=== PATIENT | male | born 1970 | race Two or more races ===

== ENCOUNTER 2017-05-22 11:09 | Outpatient (CLI) | payer MEDICAID ==
[~2017-05-22] VITALS: Ht 177.8 cm; Wt 110.0 kg
--- NOTE | ~2017-05-22 | HEMODYNAMI ---
PATIENT:VANESSA LARSON MEDICAL RECORD: [id number] : 74 LOCATION:D.CAT ADMISSION DATE: 05/22/17 Generatedon:05/22/201714:24 Patient name: VANESSA LARSON Patient #: [id number] SSN: : 1970 Date of study: 05/22/2017 Page: Of Hemodynamic Procedure Report Patient Data Patient Demographics Procedure consent was obtained First Name: VANESSA Gender: Male Last Name: MARSHA : 1970 Patient #: [id number] Age: 46 year(s) Race: Other Additional ID: [id number] Contact details [address]: [address] [place] [address] TRAIL State: [place] City: [place] Zip code: [address] Past Medical History Allergies Allergen Reaction Date Comments Reported Other allergy 05/22/2017 [facility] Admission Admission Data Admission Date: 05/22/2017 Admission Time: 11:09 Lab Results Lab Result Date: 05/22/2017 Lab Result Time: 0:00 Biochemistry Name Units Result Min Max BUN mg/dl 12 --(-*--)-- 7 18 Creatinine mg/dl 0.7 --(*---)-- 0.6 1.3 CBC Name Units Result Min Max Hemoglobin g/dl 14.8 --(-*--)-- 13.5 17.5 Procedure Procedure Types Cath Procedure Diagnostic Procedure C [facility] w/Coronaries Miscellaneous Procedures Moderate Sedation up to 45 minutes Procedure Description Procedure Date Procedure Date: 05/22/2017 Procedure Start Time: 13:51 Procedure End Time: 14:20 Procedure Staff Name Function Vicente Fong MD Performing Physician Marisa Otero RT Monitor May Beavers RT Scrub Lorelei Goodson RN Nurse Nancy Platt RN Nurse Procedure Data Cath Procedure Fluoroscopy Diagnostic fluoroscopy Total fluoroscopy Time: 7 time: 7 min min Diagnostic fluoroscopy Total fluoroscopy dose: dose: 1378 mGy 1378 mGy Contrast Material Contrast Material Type Amount (ml) Isovue 300 68 Entry Location Entry Primary Successful Side Size Upsize Upsize Entry Closure Bautista ccessful Closure Location (Fr) 1 (Fr) 2 (Fr) Remarks Device Remarks Radial Right 6 Fr Mechanical artery Short Compression Femoral Right 5 Fr Exoseal artery Estimated blood loss: 5 ml Diagnostic catheters Device Type Used For End Catheter Placement DIAGNOSTIC [place] 110cm 5 Multi-vessel Fr catheter ([id number]) Angiography DIAGNOSTIC [place] 110cm Multi-vessel 5Fr catheter (261952) Angiography Procedure Complications No complications Procedure Medications Medication Administration Route Dosage 0.9% NaCl I.V. 100 ml/hr Oxygen NC 2 l/min Lidocaine 2% added to field 20 Heparin Flush Bag added to field 2 bags (1000units/500ml NS) Fentanyl I.V. 100 mcg Versed I.V. 2 mg Versed I.V. 2 mg Fentanyl I.V. 100 mcg Radial Cocktail added to field 1 syringe (Verapomil 2mg/Nitro 400mcg/Heparin 1500units) Fentanyl I.V. 100 mcg Versed I.V. 2 mg Versed I.V. 2 mg Fentanyl I.V. 100 mcg Versed I.V. 2 mg Fentanyl I.V. 100 mcg Hemodynamics Rest HGB: 14.8 (g/dl) Heart Rate: 79 (bpm) Pressure Samples Time Site Value (mmHg) Purpose Heart Use Rate(bpm) 13:57 LV 137/-5,18 Snapshot 80 Gradients Valve Time Site Site Mean SEP/DFP Peak To Heart Use 1 2 (mmHg) (sec/min) Peak Rate (mmHg) (bpm) Aortic 13:58 LV AO 86 Snapshots Pre Cath Intra NCS Post Cath Vital Signs Time Heart Resp SPO2 etCO2 NIBP (mmHg) Rhythm Pain Sedation Rate (ipm) (%) (mmHg) Status Level (bpm) 13:41:23 81 23 97 25.6 135/87(109) NSR 0 (11) 10(A) , No pain 13:45:35 81 18 98 35.4 124/75(95) NSR 0 (11) 10(A) , No pain 13:49:42 78 16 98 33.9 122/79(104) NSR 0 (11) 10(A) , No pain 13:53:50 78 15 94 40.7 122/76(93) NSR 0 (11) 10(A) , No pain 13:57:54 85 15 96 40.7 121/85(90) NSR 0 (11) 10(A) , No pain 14:02:04 86 17 98 46.7 121/76(94) NSR 0 (11) 10(A) , No pain 14:06:57 80 16 94 42.2 129/78(101) NSR 0 (11) 10(A) , No pain 14:11:07 82 16 94 42.9 123/79(95) NSR 0 (11) 10(A) , No pain 14:15:17 84 19 94 42.9 119/74(93) NSR 0 (11) 10(A) , No pain 14:19:24 79 16 100 32.4 121/82(105) NSR 0 (11) 10(A) , No pain Medications Time Medication Route Dose Verified Delivered Reason Notes Effectiveness by by 13:10:21 0.9% NaCl I.V. 100ml/hr Vicente Nancy used for Ajit Platt RN procedure 13:10:32 Oxygen NC 2 l/min Vicente Nancy Per Ajit Platt RN physician 13:10:40 Lidocaine 2% added 20ml Viecnte Vicente for local to vial Ajit Fong MD anesthetic field 13:10:45 Heparin Flush added 2 bags Vicente Vicente used for Bag to Ajit Fong MD procedure (1000units/500ml field NS) 13:46:08 Fentanyl I.V. 100 mcg Vicente Nancy for sedation Ajit Platt RN 13:46:18 Versed I.V. 2 mg Vicente Nancy for sedation Ajit Platt RN 13:50:20 Versed I.V. 2 mg Vicente Nancy for sedation Ajit Platt RN 13:50:26 Fentanyl I.V. 100 mcg Vicente Nancy for sedation Ajit Platt RN 13:52:07 Radial Cocktail added 1 Vicente Vicente for (Verapomil to syringe Ajit Fong MD vasodilation 2mg/Nitro field 400mcg/Heparin 1500units) 13:55:33 Fentanyl I.V. 100 mcg Vicente Nancy for sedation Ajit Platt RN 13:55:41 Versed I.V. 2 mg Vicente Nancy for sedation Ajit Platt RN 13:58:52 Versed I.V. 2 mg Vicente Nancy for sedation Ajit Platt RN 13:59:03 Fentanyl I.V. 100 mcg Vicente Nancy for sedation Ajit Platt RN 14:01:42 Versed I.V. 2 mg Vicente Nancy for sedation Ajit Platt RN 14:01:59 Fentanyl I.V. 100 mcg Vicente Nancy for sedation Ajit Platt RN Procedure Log Time Note 13:08:06 Diagnostic Cath Status : Elective 13:08:43 May Beavers RT(R) sent for patient. Start room use. 13:08:44 Time tracking: Regular hours 13:08:49 Plan of Care:Hemodynamics will remain stable., Cardiac rhythm will remain stable., Comfort level will be maintained., Respiratory function will remain adequate., Patient/ family verbilizes understanding of procedure., Procedure tolerated without complication., Recovers from procedure without complications.. 13:10:21 0.9% NaCl 100ml/hr I.V. was administered by Nancy Platt RN; used for procedure; 13:10:32 Oxygen 2 l/min NC was administered by Nancy Platt RN; Per physician; 13:10:40 Lidocaine 2% 20ml vial added to field was administered by Vicente Fong MD; for local anesthetic; 13:10:45 Heparin Flush Bag (1000units/500ml NS) 2 bags added to field was administered by Vicente Fong MD; used for procedure; 13:29:16 Patient received from Pre/Post Procedure Room to [facility] 2 Alert and oriented. Tansferred to table in Supine position. 13:29:22 Warm blankets applied, and solo hugger turned on for patient comfort. 13:29:22 Correct patient and procedure confirmed by team. 13:29:24 Signed procedure consent form obtained from patient. 13:29:26 ECG and BP/O2 sat monitors applied to patient. 13:41:02 Vital chart was started 13:41:03 Baseline sample Acquired. 13:41:08 Rhythm: sinus rhythm 13:41:09 Full Disclosure recording started 13:41:21 H&P Date Dictated: 04/24/2017 Within 30 days and on chart., H&P Addendum completed by physician on day of procedure. (MUST COMPLETE FOR ALL OUTPATIENTS). 13:41:23 Pre-procedure instructions explained to patient. 13:41:24 Pre-op teaching completed and patient verbalized understanding. 13:41:27 Family in waiting room. 13:41:30 Patient NPO since Midnight. 13:42:23 Patient allergic to Other allergyhaldol 13:42:40 Is the patient allergic to Iodine/contrast media? No. 13:42:41 Was the patient premedicated? No 13:43:06 Is patient on blood thinner?No 13:43:07 Patient diabetic? No. 13:43:10 Previous problem with sedation/anesthesia? No ? 13:43:12 Snore? Yes 13:43:13 Sleep apnea? No 13:43:14 Deviated septum? No 13:43:15 Opens mouth fully? Yes 13:43:17 Sticks out tongue? Yes 13:43:19 Airway obstruction? No ? 13:43:21 Dentures? No ? 13:43:26 Pre procedure: right dorsailis pedis pulse 2+ Normal; easily identifiable; not easily obliterated 13:43:30 Pre procedure: left dorsailis pedis pulse 2+ Normal; easily identifiable; not easily obliterated 13:43:33 Patient pain scale 0/10 ?. 13:43:40 IV patent on arrival in left forearm with 0.9% NaCl at [facility]. 13:43:59 Lab results completed and on chart. 13:44:10 Right Radial & Right Groin area was prepped with chlora-prep and draped in sterile fashion 13:44:11 Alarms reviewed by R. N. 13:44:12 Sharps counted by scrub and verified by R.N. 13:44:13 Physician arrived 13:44:14 --------ALL STOP TIME OUT------ 13:44:14 Final Timeout: patient, procedure, and site verified with staff and physician. All members of the team are in agreement. 13:44:16 Right Radial & Right Groin site verified by team. 13:44:19 Physical assessment completed. ASA score P 2 - A patient with mild systemic disease as per Vicente Fong MD. 13:44:24 Sedation plan: IV Moderate Sedation Medication:Versed, Fentanyl 13:44:30 Use device set Radial Dx 13:44:31 ACIST Syringe (35495) opened to sterile field. 13:44:31 Medline Cath Pack ([id number]) opened to sterile field. 13:44:32 Bag Decanter (2001S) opened to sterile field. 13:44:32 SHEATH 6FR Slender ([id number]) opened to sterile field. 13:44:33 DIAGNOSTIC WIRE .035 260cm J wire (028015) opened to sterile field. 13:44:33 ACIST Hand Control (18249) opened to sterile field. 13:44:34 ACIST Manifold (79500) opened to sterile field. 13:44:34 Tegaderm 4 x 4 (1626W) opened to sterile field. 13:44:38 MBrace Wrist Support ([id number]) opened to sterile field. 13:46:08 Fentanyl 100 mcg I.V. was administered by Nancy Platt RN; for sedation; 13:46:18 Versed 2 mg I.V. was administered by Nancy Platt RN; for sedation; 13:49:16 Lab Result : Hemoglobin 14.8 g/dl 13:49:16 Lab Result : Creatinine 0.7 mg/dl 13:49:16 Lab Result : BUN 12 mg/dl 13:49:42 Zero performed for pressure channel P1 13:50:05 Zero performed for pressure channel P1 13:50:20 Versed 2 mg I.V. was administered by Nancy Platt RN; for sedation; 13:50:26 Fentanyl 100 mcg I.V. was administered by Nancy Platt RN; for sedation; 13:51:40 Procedure started. 13:51:50 Local anesthetic to right radial artery with Lidocaine 2% by Vicente Fong MD.INITIAL ACCESS ONLY 13:52:07 Radial Cocktail (Verapomil 2mg/Nitro 400mcg/Heparin 1500units) 1 syringe added to field was administered by Vicente Fong MD; for vasodilation; 13:53:40 A 6 Fr Short sheath was inserted into the Right Radial artery 13:55:33 Fentanyl 100 mcg I.V. was administered by Nancy Platt RN; for sedation; 13:55:41 Versed 2 mg I.V. was administered by Nancy Platt RN; for sedation; 13:56:47 A DIAGNOSTIC [place] 110cm 5 Fr catheter (155093) was advanced over the wire and used for Multi-vessel Angiography. 13:57:30 LV hemodynamics recorded. 13:57:31 LV gram done using MAYNARD 13:57:48 Injector settings: Ml/sec: 15, Volume: 15, 13:58:03 EF : 55 % 13:58:52 Versed 2 mg I.V. was administered by Nancy Platt RN; for sedation; 13:59:03 Fentanyl 100 mcg I.V. was administered by Nancy Platt RN; for sedation; 13:59:48 RCA angiography performed. 13:59:55 Injector settings: Ml/sec: 5, Volume: 15, 14:01:25 Catheter removed. 14:01:38 A DIAGNOSTIC [place] 110cm 5Fr catheter (688443) was advanced over the wire and used for Multi-vessel Angiography. 14:01:42 Versed 2 mg I.V. was administered by Nancy Platt RN; for sedation; 14:01:59 Fentanyl 100 mcg I.V. was administered by Nancy Platt RN; for sedation; 14:04:35 Catheter removed. 14:04:42 Local anesthetic to right femoral artery with Lidocaine 2% by Vicente Fong MD.ADDITIONAL ACCESS 14:04:51 SHEATH 5FR [place] (CLP984) opened to sterile field. 14:07:04 A 5 Fr sheath was inserted into the Right Femoral artery 14:08:03 DIAGNOSTIC Multipack 5Fr catheter set (CM9942) opened to sterile field. 14:08:21 5 Fr jl 4 guide catheter was inserted over the wire 14:17:21 LCA angiography performed. 14:17:24 Injector settings: Ml/sec: 3, Volume: 6, 14:17:25 Catheter removed. 14:17:27 TR BAND Standard (UCK01VWN) opened to sterile field. 14:17:34 EXOSEAL 5Fr (EX500) opened to sterile field. 14:18:17 Sheath removed intact; hemostasis achieved with Mechanical Compression to the Right Radial artery. 14:18:24 Sheath removed intact; hemostasis achieved with Exoseal to the Right Femoral artery. 14:18:25 Procedure ended.(Physican Out) 14:18:49 Fluoroscopy time 07.00 minutes. 14:18:53 Flurop Dose total: 1378 14:18:53 Fluoroscopy dose: 1378 mGy 14:18:58 Contrast amount:Isovue 300 68ml. 14:19:00 Sharps counted by scrub and verified by R.N. 14:19:02 Insertion/operative site no bleeding no hematoma. 14:19:04 TR band inflated with 10cc of air. 14:19:42 Post-op/insertion site Right Femoral artery dressed using a 4 x 4 and Tegaderm. 14:19:46 Post right radial artery:stable 14:19:52 Post Procedure Pulses reassessed and unchanged 14:19:54 Post procedure rhythm: unchanged. 14:19:57 Estimated blood loss: 5 ml 14:19:59 Post procedure instruction explained to patient.Patient verbalizes understanding. 14:19:59 Patient needs reinforcement of post procedure teaching. 14:20:12 Procedure type changed to Cath procedure, Diagnostic procedure, LHC, LHC w/Coronaries, Miscellaneous Procedures, Moderate Sedation up to 45 minutes 14:20:13 Procedure and supply charges have been captured, reviewed, submitted and are correct. 14:20:17 Procedure Complication : No complications 14:20:20 Vital chart was stopped 14:20:20 See physician's report for complete and final results. 14:20:33 Report given to Pre/Post Procedure Room. 14:20:39 Patient transfered to Pre/Post Procedure Room with Stretcher. 14:20:41 Procedure ended. 14:20:41 Full Disclosure recording stopped 14:20:49 End room use (Document Last) Device Usage Item Name Manufacture Quantity Catalog Hospital Part Current Minima l Lot# / Number Charge Number Stock Stock Serial# Code ACIST Acist 1 87596 000271 313284 243077 20 Syringe ContentDJ (94628) Systems Inc Medline Cath Cardinal 1 [id number] 191626 70842 031369 5 Pack [facility] ([id number]) Bag Decanter Microtek 1 2001S 961736 70642 976020 5 () Medical Inc. SHEATH 6FR Terumo 1 [id number] 991123 778083 242092 40 Slender ([id number]) DIAGNOSTIC [facility] [place] 1 395989 977019 317146 747956 30 WIRE .035 260cm J wire (153179) ACIST Hand Acist 1 52531 419556 261723 870033 5 Control Medical (70540) Systems Inc ACIST Acist 1 54213 998069 120372 942522 5 Manifold Medical (39546) Systems Inc Tegaderm 4 x 3M 1 1626W 548258 607543 244214 5 4 (1626W) MBrace Wrist Advanced 1 140-0250-00 934783 87018 453317 5 Support Vascular ([id number]) Dynamics DIAGNOSTIC Terumo 1 40-5013 192286 224503 555577 5 [place] 110cm 5 Fr catheter (950149) DIAGNOSTIC Terumo 1 40-5023 300836 916935 642366 5 [place] 110cm 5Fr catheter (853135) SHEATH 5FR Terumo 1 MKL637 237899 836674 985676 40 [place] (UBD440) DIAGNOSTIC Cardinal 1 ET5041 511323 27176 552035 30 [facility] [employer] 5Fr catheter set (LY1674) TR BAND Terumo 1 [id number] 636051 344985 103571 40 Standard ([id number]) EXOSEAL 5Fr Cardinal 1 EX500 707797 893659 639485 10 (EX500) Health Signature Audit [place] Stage Time Signature Unsigned Intra-Procedure 05/22/2017 Marisa Otero 2:24:48 PM RT(R) Signatures Monitor : Marisa Otero RT Signature : Date : Time : [facility] [address] [place] [address]
[~2017-05-22 11:09] MED LIST: BAYER CHEWABLE81 MG PO; KLONOPIN1 MG PO; LOPID600 MG PO; LOVAZA1 G PO; ZESTORETIC 20/21 TAB PO
[2017-05-22 11:48] VITALS: BP 140/80; Ht 177.8 cm; Wt 110.0 kg
[2017-05-22] MEDS ORDERED: NORVASC10 MG PO (11:51)
[2017-05-22] MEDS ORDERED: LISINOPRIL10 MG PO (11:52)
[2017-05-22] MEDS ORDERED: ZOLOFT100 MG PO (11:52)
[2017-05-22] MEDS ORDERED: ZANAFLEX4 MG PO (11:52)
[2017-05-22 12:11] LABS: BASOPHILS 0.4 % (0-2); EOSINOPHILS 3.1 % (0-7); HEMATOCRIT 43.5 % (42.0-54.0); HEMOGLOBIN 14.8 g/dL (13.5-17.5); IMMATURE GRANULOCYTES 0.4 % (0-5); LYMPHOCYTES 19.2 % (15-50); MCH 28.7 pg (26.0-34.0); MCV 84.3 fL (80.0-100.0); MEAN PLATELET VOLUME 12.1 fL (7.4-10.4); MONOCYTES 5.7 % (2-11); NEUTROPHILS 71.2 % (40-80); PLATELET COUNT 208 10x3/uL (130-400); RBC 5.16 10x6/uL (4.20-6.10); RDW 13.5 % (11.5-14.5); WBC 10.8 10x3/uL (4.8-10.8)
[2017-05-22 12:21] LABS: CALC OSMOLALITY 278 mosm/kg (275-300); CARBON DIOXIDE 27.1 mmol/L (21.0-32.0); CHLORIDE - SERUM 102 mmol/L (98-107); CREATININE - SERUM 0.7 mg/dL (0.6-1.3); GLUCOSE 155 mg/dL (74-106); POTASSIUM - SERUM 4.4 mmol/L (3.5-5.1); SODIUM 138 mmol/L (136-145); UREA NITROGEN 12 mg/dL (7-18); eGFR NON AFRICAN AMERICAN > 90 mL/min (90-120)
--- NOTE | 2017-05-22 14:50 | NUR ---
2L NC, NO RESP DISTRESS. RIGHT GROIN 5F EXOSEAL CDI, NO BLEEDING OR HEMATOMA NOTED. RIGHT WRIST TR BAND CDI, NO BLEEDING OR HEMATOMA NOTED. NO C/O PAIN OR NAUSEA. VSS. WILL CONTINUE TO MONITOR.
--- NOTE | 2017-05-22 15:30 | NUR ---
VOIDED 500CC OF CLEAR YELLOW URINE IN URINAL.
--- NOTE | 2017-05-22 16:12 | NUR ---
4CC OF AIR REMOVED FROM TR BAND, NO BLEEDING NOTED.
--- NOTE | 2017-05-22 16:27 | NUR ---
HOB ELEVATED 30 DEGREES. RIGHT GROIN 5F EXOSEAL CDI, NO BLEEDING OR HEMATOMA NOTED. 4CC OF AIR REMOVED FROM TR BAND, NO BLEEDING. SANDWICH TRAY AND DRINK GIVEN, NO C/O NAUSEA. VSS. WILL CONTINUE TO MONITOR.
--- NOTE | 2017-05-22 16:45 | NUR ---
REMAINING AIR REMOVED FROM TR BAND, DRESSING PLACED TO SITE. LEFT FA PIV D/C'D WITH CATHETER INTACT, BAND AID TO SITE. UP TO BEDSIDE TO GET DRESSED.
--- NOTE | 2017-05-22 16:52 | NUR ---
DISCHARGE INSTRUCTIONS GIVEN, VERBALIZED UNDERSTANDING.
--- NOTE | 2017-05-22 16:58 | NUR ---
TAKEN OUT VIA WHEELCHAIR BY CATH CAREER RESOURCE TECHNICIAN. LEFT FACILITY WITH FAMILY AND ALL PERSONAL BELONGINGS.
== END 2017-05-22 16:58 | disposition home or self-care (01) ==
LOC: D.CATH 11:09
PROVIDERS: Internal Medicine Cardiovascular Disease
DX: I25.119 Atherosclerotic heart disease of native coronary artery with unspecified angina pectoris (principal); I10 Essential (primary) hypertension; R94.30 Abnormal result of cardiovascular function study, unspecified; Z01.812 Encounter for preprocedural laboratory examination

== ENCOUNTER 2017-09-12 07:00 | Day surgery (SDC) | payer MEDICAID ==
[2017-09-11 10:14] LABS: HEMATOCRIT 47.6 % (42.0-54.0); HEMOGLOBIN 15.9 g/dL (13.5-17.5); MCH 27.5 pg (26.0-34.0); MCHC 33.4 g/dL (31.0-37.0); MCV 82.4 fL (80.0-100.0); MEAN PLATELET VOLUME 12.9 fL (7.4-10.4); RBC 5.78 10x6/uL (4.20-6.10); RDW 14.3 % (11.5-14.5); WBC 12.3 10x3/uL (4.8-10.8)
[~2017-09-12] VITALS: Ht 177.8 cm; Wt 115.2 kg
--- NOTE | ~2017-09-12 | OP ---
PATIENT NAME: VANESSA LARSON MEDICAL RECORD: [id number] :74 [facility] DATE: SURGEON: FRANCO ABDULLAHI MD DATE OF OPERATION: 09/12/2017 SURGEON: Franco Abdullahi MD ANESTHESIA: General anesthesia by Gerson Trujillo. PREOPERATIVE DIAGNOSES: Urge urinary incontinence and left medial thigh skin tag. PROCEDURES: Cystoscopy, intravesical Botox injection 100 units with excision of left medial thigh skin tag. FINDINGS: Nonobstructive prostate, single ureteral orifices bilaterally. No bladder tumors. Left medial thigh skin tag about 5 mm in length. SPECIMENS: Left medial thigh skin tag. ESTIMATED BLOOD LOSS: None. CLINICAL HISTORY: This is a 46-year-old male, who initially complained of a right scrotal base sebaceous cyst and a left medial thigh skin tag. He was also complaining of nocturia and urinary urgency and frequency, which was treated with Ditropan, but medication did not help his symptoms. He comes today to have cystoscopy and intravesical Botox injected for the urge incontinence. He also wanted to have the scrotal sebaceous cyst and the medial thigh skin tag removed. HE IS ALLERGIC TO HALDOL. We gave him Ancef cotton baler to the OR. DESCRIPTION OF PROCEDURE: The patient was given induction of general anesthesia. He was placed in the dorsal lithotomy position and prepped and draped. We performed cystoscopy using a 21-Uzbek cystoscope with 30-degree lens. Penile urethra was nonobstructive. Prostatic urethra was not obstructive. The bladder neck is somewhat elevated though. Going into the bladder, no bladder tumors were seen. At 10 different locations, we injected 1 mL of Botox solution. Each mL has 10 units of Botox dissolved in it. We spared the ureteral orifices on the trigone in the injection areas. Once this was done, the bladder was emptied through the cystoscope and then the scope was removed. The thigh and scrotum had been prepped and draped. I could not identify clearly the sebaceous cyst that he had been complaining about. It may have resolved on its own. As such, I placed forceps on the skin tag and excised it at its base using a #15 blade. A 4-0 Monocryl suture was placed there to close the skin incision. A Band-Aid was placed over this site. The patient will be going home today. I will see him in followup next week to check on wound healing. TRANSINT:[id number] Voice Confirmation ID: [id number] DOCUMENT ID: [id number] OPERATIVE REPORT [id number] VANESSA LARSON ROBERT S MD at 1354 CC: [id number] DICTATION DATE: 09/12/17 1237 WEIGHT INSPECTOR: 09/12/17 1327 REG [place] [id number] [place] [id number]
[~2017-09-12 07:00] MED LIST changes: +LISINOPRIL10 MG PO; +NORVASC10 MG PO; +ZANAFLEX4 MG PO; +ZOLOFT100 MG PO
[2017-09-12] MEDS ORDERED: LISINOPRIL5 MG PO (08:22)
[2017-09-12 08:24] VITALS: BP 133/87; Ht 177.8 cm; Wt 115.2 kg
== END 2017-09-12 14:10 | disposition home or self-care (01) ==
LOC: D.OPS 07:00 → D.PAN 09:30 → D.OPS 09:30 → D.PAN 10:15 → D.OPS 10:15
PROVIDERS: Anesthesiology
DX: N39.41 Urge incontinence (principal); L91.8 Other hypertrophic disorders of the skin; Z01.812 Encounter for preprocedural laboratory examination